=== PATIENT | female | born 1970 | race Caucasian/White ===

== ENCOUNTER → 2020-03-04 | Outpatient (CLI) | payer MEDICARE, OTHER ==
[2020-03-04 13:12] LABS: ALBUMIN 3.7 g/dL (3.5-5.0); POTASSIUM 4.1 mmol/L (3.5-5.1)
[2020-03-04 13:13] LABS: CALCIUM 8.7 mg/dL (8.3-10.5)
[2020-03-04 13:15] LABS: TOTAL PROTEIN 7.3 g/dL (6.4-8.3)
[2020-03-04 13:16] LABS: TOTAL BILIRUBIN 0.4 mg/dL (0.2-1.2)
[2020-03-04 13:20] LABS: DIRECT BILIRUBIN 0.3 mg/dL (0.0-0.5)
[2020-03-04 23:21] LABS: PTH,INTACT 163.2 pg/mL (6.6-88.9)
[2020-03-04 23:37] LABS: FOLATE (FOLIC ACID) 12.2 ng/mL (7.0-31.4)
[2020-03-08 14:18] LABS: .COPPER,S 1.18 mcg/mL (())
== END ==
LOC: LAB 12:42
PROVIDERS: Internal Medicine
DX: K90.9 Intestinal malabsorption, unspecified (principal)

== ENCOUNTER → 2020-04-28 | Outpatient (CLI) | payer MEDICARE, OTHER | LOC: LAB 12:39 | DX: Z01.812 Encounter for preprocedural laboratory examination (principal); Z20.822 Contact with and (suspected) exposure to COVID-19 ==

== ENCOUNTER → 2020-05-02 | Day surgery (SDC) | payer MEDICARE, OTHER | END | disposition home or self-care (01) | LOC: MSO 08:45 | DX: R10.13 Epigastric pain (principal); R11.2 Nausea with vomiting, unspecified; D50.9 Iron deficiency anemia, unspecified; F41.1 Generalized anxiety disorder; G89.29 Other chronic pain; Z98.84 Bariatric surgery status; Z87.891 Personal history of nicotine dependence; Z79.899 Other long term (current) drug therapy; Z87.11 Personal history of peptic ulcer disease; Z88.0 Allergy status to penicillin; Z88.8 Allergy status to other drugs, medicaments and biological substances; E55.9 Vitamin D deficiency, unspecified | CPT/HCPCS: 00731; J2704; J7120 ==

== ENCOUNTER 2021-08-08 07:18 | Emergency (ER) | payer MEDICARE, OTHER ==
[2021-08-08] MEDS ORDERED: AMITRIPTYLINE H25 M2 PO (08:55)
[2021-08-08] MEDS ORDERED: PANTOPRAZOLE SO40 MG PO (08:55)
[2021-08-08] MEDS ORDERED: REMERON15 MG PO (08:55)
[2021-08-08] MEDS ORDERED: DULOXETINE60 MG PO (08:55)
[2021-08-08] MEDS ORDERED: VITAMIN D21250 MCG PO (08:55)
[2021-08-08] MEDS ORDERED: KLONOPIN 1MG1 MG PO (08:55)
[2021-08-08] MEDS ORDERED: LISINOPRIL10 MG PO (08:55)
[2021-08-08] MEDS ORDERED: TIZANIDINE HYDRO4 MG PO (08:55)
[2021-08-08] MEDS ORDERED: CYCLOBENZAPRINE10 M1 PO ×2 (08:57→15:53)
[2021-08-08 09:13] VITALS: BP 168/120
== END 2021-08-08 09:15 | disposition home or self-care (01) ==
LOC: ED 07:18
DX: M54.50 Low back pain, unspecified (principal); Z88.6 Allergy status to analgesic agent; Z28.310 Unvaccinated for COVID-19; W14.XXXA Fall from tree, initial encounter
CPT/HCPCS: J2360

== ENCOUNTER 2021-09-26 08:52 | Outpatient (RCR) | payer MEDICARE, OTHER ==
[~2021-09-26 08:52] MED LIST: AMITRIPTYLINE H25 M2 PO; CYCLOBENZAPRINE10 M1 PO; DULOXETINE60 MG PO; KLONOPIN 1MG1 MG PO; LISINOPRIL10 MG PO; PANTOPRAZOLE SO40 MG PO; REMERON15 MG PO; TIZANIDINE HYDRO4 MG PO; VITAMIN D21250 MCG PO
== END 2021-10-13 14:19 | disposition home or self-care (01) ==
LOC: OPPGERO 08:52
DX: F43.12 Post-traumatic stress disorder, chronic (principal); F10.288 Alcohol dependence with other alcohol-induced disorder; F11.24 Opioid dependence with opioid-induced mood disorder

== ENCOUNTER 2021-10-16 09:25 | Outpatient (RCR) | payer MEDICARE, OTHER | END 2021-11-15 16:36 | disposition home or self-care (01) | LOC: OPPGERO 09:25 | DX: F43.10 Post-traumatic stress disorder, unspecified (principal); F39 Unspecified mood [affective] disorder; F10.288 Alcohol dependence with other alcohol-induced disorder; F10.24 Alcohol dependence with alcohol-induced mood disorder ==

== ENCOUNTER → 2022-04-13 | Outpatient (CLI) | payer MEDICARE, OTHER ==
[2022-04-13 12:19] LABS: BASO # 0.04 K/mm3 (0.02-0.10); EOS # 0.19 K/mm3 (0.04-0.40); EOS % 2.8 % (1.0-5.0); HEMOGLOBIN 13.3 g/dL (12.5-16.0); LYMPH# 1.68 K/mm3 (1.50-4.00); MEAN CELL VOLUME 95 fl (78-100); MEAN CORPUSCULAR HEMOGLOBIN 32 pg (27-31); MEAN CORPUSCULAR HGB CONC 33 g/dL (33-37); MEAN PLATELET VOLUME 9.5 fl (7.4-10.4); MONO # 0.28 K/mm3 (0.20-0.80); NEU # 4.63 K/mm3 (1.40-6.50); PLATELET COUNT 220 K/mm3 (130-400); RED BLOOD COUNT 4.22 M/mm3 (4.10-5.30); RED CELL DISTRIBUTION WIDTH 11.6 % (11.5-14.5); WHITE BLOOD COUNT 6.8 K/mm3 (4.8-10.8)
[2022-04-13 12:35] LABS: POTASSIUM 4.1 mmol/L (3.5-5.1)
[2022-04-13 12:36] LABS: CALCIUM 9.7 mg/dL (8.3-10.5)
[2022-04-13 12:37] LABS: TOTAL PROTEIN 7.1 g/dL (6.4-8.3)
[2022-04-13 12:39] LABS: TOTAL BILIRUBIN 0.4 mg/dL (0.2-1.2)
[2022-04-13 12:44] LABS: MAGNESIUM 1.88 mg/dL (1.60-2.60)
[2022-04-13 14:11] LABS: ERYTHROCYTE SEDIMENTATION RATE 14 mm/hr (0-30)
[2022-04-13 23:28] LABS: PTH,INTACT 62.6 pg/mL (6.6-88.9)
[2022-04-14 04:57] LABS: CALCIUM, IONIZED, SERUM 1.21 mmol/L (1.19-1.41)
== END ==
LOC: LAB 11:54
PROVIDERS: Internal Medicine
DX: M47.22 Other spondylosis with radiculopathy, cervical region (principal); K90.9 Intestinal malabsorption, unspecified; E78.2 Mixed hyperlipidemia; I10 Essential (primary) hypertension; F33.1 Major depressive disorder, recurrent, moderate; G47.01 Insomnia due to medical condition; M19.049 Primary osteoarthritis, unspecified hand; Z98.84 Bariatric surgery status; Z98.1 Arthrodesis status

== ENCOUNTER → 2022-04-24 | Outpatient (CLI) | payer MEDICARE, OTHER | LOC: RAD 12:03 | DX: M48.02 Spinal stenosis, cervical region (principal); M54.12 Radiculopathy, cervical region; M77.8 Other enthesopathies, not elsewhere classified; Z98.1 Arthrodesis status | CPT/HCPCS: A9575 ==